=== PATIENT | male | born 1995 | race Caucasian/White ===

== ENCOUNTER 2019-11-29 14:59 | Emergency (ER) | payer MEDICAID ==
--- NOTE | 2019-11-29 15:03 | EDM.PDOC ---
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 He did take 400 mg of ibuprofen shortly after the above injury and placed a dressing, however no other treatment prior to arrival, including irrigation, Neosporin, etc.. The patient was working with an excavator and chain when his fingers accidentally 79 overgot caught in the chain. He has not injured these fingers in the past, however he is left-handed. No recent history of abdominal pain, heartburn, nausea, diarrhea, melena, gross hematochezia, or any food intolerance, including fatty foods, etc.. The patient also denies any recent fever, cough, wheezing, dyspnea, etc... No history of paresthesias, neurological deficits, or other complaints or injuries. Onset: Today, Sudden Onset Date: 11/29/19 Onset Time: 13:00 Duration: Constant, Resolved Prior to Arrival Location: Reports: Upper Extremity, Left. Denies: Head, Face, Neck, Chest, Abdomen, Back, Pelvis, Upper Extremity, Right, Lower Extremity, Left, Radiates to Quality: Reports: Same as Previous Episode, Sharp, Throbbing Severity: Moderate Improves with: Reports: None Worsens with: Reports: None Context: Reports: Trauma (As above) Associated Symptoms: Denies: Confusion, Chest Pain, Cough, Diaphoresis, Fever/Chills, Headaches, Loss of Appetite, Malaise, Nausea/Vomiting, Rash, Shortness of Breath, Syncope, Weakness Treatments AIR POLLUTION ANALYST: Reports: Dressing(s), NSAIDS Left Hand Pain Score (Numeric/FACES): 8 - Related Data Allergies Allergy/AdvReac Type Severity Reaction Status Date / Time No Known Allergies Allergy Verified 11/29/19 15:01 Home Meds: Home Meds Amoxicillin/Potassium Clav [Augmentin 875-125 Tablet] 1 each PO BIDMEALS #20 tablet 11/29/19 [Rx] Past Medical History Musculoskeletal History: Reports: Fracture, Other (See Below) Other Musculoskeletal History: Fifth right metacarpal secondary to a boxer's fracture in 2011 with no surgery required. Psychiatric History: Reports: ADD, ADHD, Addiction, Anxiety, Depression, Suicidal Ideation, Other (See Below). Denies: Psych Hospitalization(s), Suicide Attempt Other Psychiatric History: Illicit drug use as above. Social & Family History - Tobacco Use Smoking Status *Q: Current Every Day Smoker Tobacco Use Within Last Twelve Months: Cigarettes Years of Tobacco use: 8 Packs/Tins Daily: 1 Packs/Tins Daily Comment: Patient started smoking at age 16. - Alcohol Use Alcohol Use History: Yes Days Per Week of Alcohol Use: 2 Number of Drinks Per Day: 4 Total Drinks Per Week: 8 Total Drinks Per Week Comment: Usually beer. Patient would not answer DWI or treatment question. Alcohol Use in Last Twelve Months: Yes - Recreational Drug Use Recreational Drug Use: Yes Drug Use in Last 12 Months: Yes Recreational Drug Type: Reports: Amphetamines (Speed) (Started age 19 including IV use with patient arrested in early 2023 possession with 6-month imprisonment with last use since that time), Marijuana/Hashish (Since age 18? Daily.), Methamphetamine (As above). Denies: Cocaine, Heroin, Inhalants (Glues, Solvents, Aerosols), LSD (Acid), Morphine, Oxycodone Recreational Drug Route: Reports: Intravenous - Living Situation & Occupation Living situation: Reports: Single (1 child from a previous relationship. Never ), Other (Roommate) Occupation: Employed (Patent Legal Assistant) Review of Systems - Review of Systems Review Of Systems: Comprehensive ROS is negative, except as noted in HPI. ED EXAM, GENERAL - Physical Exam Exam: See Below Exam Limited By: No Limitations General Appearance: Alert, WD/WN, No Apparent Distress Head: Atraumatic, Normocephalic. No: Facial Swelling, Facial Tenderness, Sinus Tenderness Neck: Normal Inspection, Supple, Non-Tender, Full Range of Motion. No: Lymphadenopathy (L), Lymphadenopathy (R), Thyromegaly Respiratory/Chest: No Respiratory Distress, Lungs Clear, Normal Breath Sounds, No Accessory Muscle Use, Chest Non-Tender. No: Pleural Rub, Retractions Cardiovascular: Normal Peripheral Pulses, Regular Rate, Rhythm, No Edema, No Gallop, No JVD, No Murmur, No Rub. No: Gallop/S3, Gallop/S4, Friction Rub Peripheral Pulses: 2+: Radial (L), Radial (R) GI/Abdominal: Normal Bowel Sounds, Soft, Non-Tender, No Organomegaly, No Distention, No Abnormal Bruit, No Mass, Pelvis Stable. No: Guarding (Male) Exam: Deferred Rectal (Males) Exam: Deferred Back Exam: Normal Inspection, Full Range of Motion. No: CVA Tenderness (L), CVA Tenderness (R), Muscle Spasm Extremities: Normal Range of Motion, Non-Tender (Moderate palpation pain over laceration sites.), No Pedal Edema, Normal Capillary Refill, Other (2.5 cm denudement injury of digit #4 of the left hand including nail involvement. No bone prominence. 2 cm in diameter blister and mild abrasion over the middle phalanx in the palmar region of digit #3 of the left hand with no foreign body, requiring repair, deformity, etc.). No: Joselito's Sign Neurological: Alert, Oriented, CN II-XII Intact, Normal Cognition, Normal Gait, No Motor/Sensory Deficits Psychiatric: Normal Affect, Normal Mood Skin Exam: Wound/Incision (As above). No: Diaphoretic Lymphatic: No Adenopathy ED TRAUMA EXTREMITY PROCEDURES - Laceration/Wound Repair Left Distal Digit - 5th (Baby) Lac/Wound Length In cm: 2.5 Appearance: Muscle, Stellate, Irregular, Heavily Contaminated, Other (Denudement injury in the tuft area) Distal NVT: Neuro & Vascular Intact, No Tendon Injury Anesthetic Type: Local Local Anesthesia - Lidocaine (Xylocaine): 1% Plain Local Anesthetic Volume: 5cc Skin Prep: Providone-Iodine (Betadine), Sterile Drape, Other (Thorough surgical brush cleansing) Saline Irrigation (cc's): 0 Exploration/Debridement/Repair: Wound Explored, In a Bloodless Field, Explored to Base, Moderate Debridement, No Foreign Material Found, Wound Margins Revised, Multiple Flaps Aligned Closed With: Sutures Suture Size: 4-0 # of Sutures: 6 Suture Type: Nylon, Interrupted, Simple Drain Placement: No Sterile Dressing Applied: Nurse (Neosporin and tube gauze dressing) Tetanus Status Addressed: Yes Complications: No Progress/Comments: Note that fingernail had to be removed by means of curved hemostats. Course - Vital Signs Last Recorded V/S: Last Vital Signs Temp 36.9 C 11/29/19 15:03 Pulse 83 11/29/19 15:03 Resp 18 11/29/19 15:03 BP 128/72 11/29/19 15:03 Pulse Ox 100 11/29/19 15:03 Vital Signs - 24 hr 11/29/19 15:03 Temperature [ 36.9 C Temporal] Pulse, 83 Peripheral [ Right Pulse Oximetry] Respiratory 18 Rate Blood Pressure 128/72 [Right Upper Arm] O2 Sat by Pulse 100 Oximetry - Orders/Labs/Meds Orders: Active Orders 24 hr Category Date Time Status Vaccines to be Administered [RC] PER UNIT ROUTINE Care 11/29/19 15:17 Active Hand Comp Min 3V Lt [CR] Stat Exams 11/29/19 15:04 Taken Durable Medical Equipment for Discharge [DME for Oth 11/29/19 15:17 Ordered Discharge] [COMM] Routine Obtain Past Medical Record [OM.PC] Routine Oth 11/29/19 15:04 Active Labs: None Meds: Medications Discontinued Medications Generic Name Dose Route Start Last Admin Trade Name Freq PRN Reason Stop Dose Admin Diphtheria/Tetanus/Acell Pertussis 0.5 ml 11/29/19 15:17 11/29/19 15:29 Adacel IM 11/29/19 15:18 0.5 ml .ONCE ONE Administration Lidocaine HCl 5 ml 11/29/19 15:16 11/29/19 15:21 Xylocaine-Mpf 1% INJECT 11/29/19 15:17 5 ml ONETIME ONE Administration Lidocaine HCl 5 ml 11/29/19 15:23 Xylocaine-Mpf 1% INJECT 11/29/19 15:24 ONETIME ONE Neomycin/Polymyxin/Bacitracin 1 each 11/29/19 15:17 11/29/19 15:22 Triple Antibiotic Oint TOP 11/29/19 15:18 1 each ONETIME ONE Administration - Radiology Interpretation Free Text/Narrative:: X-rays of the left hand, 3 views, shows evidence of a moderately displaced comminuted tuft fracture of digit #4 with no joint involvement, foreign body, etc. Dislocation, etc., Soft tissue injury noted. No evidence of fracture and disease #3 of the left hand Departure - Departure Time of Disposition: 16:17 (Those exams are working on stress test from this morning's note) Disposition: Home, Self-Care 01 Condition: Good Clinical Impression: Open fracture of tuft of distal phalanx of finger, Tobacco abuse counseling, Mixed anxiety depressive disorder, Laceration, Illicit drug use, continuous, Abrasion - Discharge Information *PRESCRIPTION DRUG MONITORING PROGRAM REVIEWED*: Not Applicable *COPY OF PRESCRIPTION DRUG MONITORING REPORT IN PATIENT MELVIN: Not Applicable Prescriptions: Amoxicillin/Potassium Clav [Augmentin 875-125 Tablet] 1 each PO BIDMEALS #20 tablet Instructions: Steps to Quit Smoking, [id number], Health Risks of Smoking, Finger Fracture, Adult, [id number], Laceration Care, Adult, [id number], Sutures, Thorndike, or Adhesive Wound Closure, [id number] Referrals: Viji Moore PA [Primary Care Provider] - Forms: ED Department Discharge Additional Instructions: 1. Follow up with your regular provider in 10-14 days for suture removal as directed. Note x-rays of digit #4 of the left hand should be repeated at follow-up. Bring these discharge instructions with you to that visit. 2. Tylenol 650 mg by mouth every 4 hours and/or OTC ibuprofen 2-3 tabs by mouth every 6 hours with food as directed./needed. You may stagger these medications for 48-72 hours only, which essentially means that you are receiving a pain medication about every 2 hours. 3. Antibacterial soap wash/soak with subsequent antibacterial dressing such as Neosporin, etc. as directed 2 times per day until the wound or laceration site completely heals. Keep the area clean and dry with activity restrictions as discussed. Never use hydrogen peroxide for wound care. 4. Wear finger splint at all times after today's dressing change 5. Stop all tobacco use PAULINA as directed/per provided information and consider contacting Quit LIne, etc.. 6. Stop all marijuana and illicit drug use PAULINA as discussed. 7. Immediately after this visit verify that your cellular telephone's voicemail has been activated and is empty. Also verify that your home telephone's answering machine is operating properly and has space to receive messages. Note that it is sometimes necessary for us to be able to contact you at a later date to discuss your medical care. 8. Please remember that we are ALWAYS here for you and want to answer any questions you may have. Feel free to call the hospital any time and we call you back PAULINA. Sepsis Event Note (ED) - Focused Exam Vital Signs: Vital Signs Temp Pulse Resp BP Pulse Ox 11/29/19 15:03 36.9 C 83 18 128/72 100 - Problem List & Annotations (1) Laceration SNOMED Code(s): 205975726 Code(s): MWY0606 - Status: Acute Priority: High Onset Date: 11/29/19 Annotation/Comment:: Overall good results with a laceration repair considering denudement injury. Tube gauze Neosporin dressing placed by the nurse. TDAP was given. Augmentin therapy is to be initiated later this afternoon secondary to highly contaminated wound, open fracture, etc. Diarrhea precautions were given for his Augmentin use. Wound care, activity restrictions, etc. were discussed. He does not need a work excuse by his history. Note that fingernail was removed without complications. The wound will need to be healed by secondary intention. (2) Open fracture of tuft of distal phalanx of finger SNOMED Code(s): 106020554 Code(s): S62.639B - DISP FX OF DISTAL PHALANX OF UNSP FINGER, INIT FOR OPN FX Status: Acute Priority: High Onset Date: 11/29/19 Annotation/Comment:: Open tuft fracture as above with laceration repair and initiation of Augmentin. Close follow-up by his regular provider. 3-hole padded aluminum finger splint was provided, which will be initiated tomorrow as above. (3) Abrasion SNOMED Code(s): 731933651 Code(s): T14.8XXA - OTHER INJURY OF UNSPECIFIED BODY REGION, INITIAL ENCOUNTER Status: Acute Priority: Medium Onset Date: 11/29/19 Annotation/Comment:: Minor abrasion with moderate blister over the palmar surface of digit #3 of the left hand. No repair required. Wound care as per discharge instructions. (4) Illicit drug use, continuous SNOMED Code(s): 719429363 Code(s): F19.90 - OTHER PSYCHOACTIVE SUBSTANCE USE, UNSPECIFIED, UNCOMPLICATED Status: Chronic Priority: Medium Annotation/Comment:: Note history of IV methamphetamine use in the past as above. Patient continues to use marijuana, including today. Discontinuation of illicit drugs PAULINA strongly encouraged. (5) Mixed anxiety depressive disorder SNOMED Code(s): 684268248 Code(s): F41.8 - OTHER SPECIFIED ANXIETY DISORDERS Status: Chronic Priority: Medium Annotation/Comment:: Stable by patient history. No current medical therapy. Note previous history of ADHD, suicidal ideation, current illicit drug use, etc. as above. Continue to observe closely by his regular provider. (6) Tobacco abuse counseling SNOMED Code(s): 604330122, 434195531, 072486775 Code(s): Z71.6 - TOBACCO ABUSE COUNSELING Status: Chronic Priority: Medium Annotation/Comment:: Tobacco cessation strongly encouraged with information provided at discharge. - Problem List Review Problem List Initiated/Reviewed/Updated: Yes - My Orders Last 24 Hours: My Active Orders 11/29/19 15:04 Hand Comp Min 3V Lt [CR] Stat Obtain Past Medical Record [OM.PC] Routine 11/29/19 15:17 Vaccines to be Administered [RC] PER UNIT ROUTINE Durable Medical Equipment for Discharge [DME for Discharge] [COMM] Routine - Assessment/Plan Last 24 Hours: My Active Orders 11/29/19 15:04 Hand Comp Min 3V Lt [CR] Stat Obtain Past Medical Record [OM.PC] Routine 11/29/19 15:17 Vaccines to be Administered [RC] PER UNIT ROUTINE Durable Medical Equipment for Discharge [DME for Discharge] [COMM] Routine Assessment:: As above Plan: As above. Extensive precautions were given to the patient and his mother, who are in agreement with the treatment plan. See Patient Instructions for further treatment and plan.
[2019-11-29 15:06] VITALS: BP 128/72; PULSE 83
[2019-11-29] MEDS: Bacitracin/Neomycin/Polymyxin B Oint 0.9 GM U/D Packet TOP ONE (15:22)
[2019-11-29] MEDS: Diphtheria,Pertussis(Acell),Tetanus Vaccine 0.5 ML SDV IM ONE (15:29)
== END 2019-11-29 16:17 | disposition home or self-care (01) ==
LOC: LL.ED 14:59
DX: S62.635B Displaced fracture of distal phalanx of left ring finger, initial encounter for open fracture (principal); S61.217A Laceration without foreign body of left little finger without damage to nail, initial encounter; S60.413A Abrasion of left middle finger, initial encounter; F41.8 Other specified anxiety disorders; F19.10 Other psychoactive substance abuse, uncomplicated; F17.210 Nicotine dependence, cigarettes, uncomplicated; Z71.6 Tobacco abuse counseling; Z23 Encounter for immunization; W23.0XXA Caught, crushed, jammed, or pinched between moving objects, initial encounter; Y92.79 Other farm location as the place of occurrence of the external cause
CPT/HCPCS: 12041; 73130; 90471; 90715; 99283; J2001

== ENCOUNTER 2023-02-27 22:17 | Emergency (ER) | payer MEDICAID ==
[2023-02-27] MEDS ORDERED: Midazolam 1 MG/ML 2 ML SDV IVPUSH ONE (22:24)
[2023-02-27] MEDS ORDERED: Midazolam 1 MG/ML 2 ML SDV ONE (22:24)
[2023-02-27] MEDS ORDERED: Tranexamic Acid 1,000 MG/10 ML Vial TOP ONE (22:27)
[2023-02-27] MEDS ORDERED: Tranexamic Acid 1,000 MG/10 ML Vial ONE (22:27)
[2023-02-27] MEDS ORDERED: Lidocaine 2% with EPINEPHrine 1:100,000 20 ML MDV ONE ×2 (22:33→22:37)
[2023-02-27] MEDS ORDERED: Lidocaine 2% with EPINEPHrine 1:100,000 20 ML MDV INJECT ONE (22:33)
[2023-02-27] MEDS ORDERED: Haloperidol Lactate 5 MG/ML SDV ONE (22:44)
[2023-02-27] MEDS ORDERED: diphenhydrAMINE 50 MG/ML SDV IVPUSH ONE (22:44)
[2023-02-27] MEDS ORDERED: Haloperidol Lactate 5 MG/ML SDV IVPUSH ONE (22:44)
[2023-02-27] MEDS ORDERED: diphenhydrAMINE 50 MG/ML SDV ONE (22:44)
[2023-02-27] MEDS ORDERED: Sodium Chloride 0.9% 1,000 ML IV ONE ×2 (23:00→23:30)
[2023-02-27] MEDS ORDERED: Bacitracin/Neomycin/Polymyxin B Oint 0.9 GM U/D Packet TOP ONE (23:01)
[2023-02-27] MEDS ORDERED: Diphtheria,Pertussis(Acell),Tetanus Vaccine 0.5 ML Syringe ONE (23:01)
[2023-02-27] MEDS ORDERED: Bacitracin/Neomycin/Polymyxin B Oint 0.9 GM U/D Packet ONE ×2 (23:01→23:02)
[2023-02-27] MEDS ORDERED: ceFAZolin 1 GM Vial ONE (23:05)
[2023-02-27] MEDS ORDERED: ceFAZolin 1 GM Vial IVPUSH ONE (23:05)
[2023-02-27 23:26] LABS: BASOPHILS ABSOLUTE AUTO 0.02 K/uL (0.00-0.20); BASOPHILS PERCENT AUTO 0.3 % (0.0-2.0); EOSINOPHILS ABSOLUTE AUTO 0.03 K/uL (0.00-0.50); EOSINOPHILS PERCENT AUTO 0.4 % (0.0-5.0); HEMATOCRIT 41.1 % (39.0-49.0); HEMOGLOBIN 13.8 g/dL (13.1-16.8); LYMPHOCYTES ABSOLUTE AUTO 1.92 K/uL (0.50-3.50); LYMPHOCYTES PERCENT AUTO 25.1 % (10.0-50.0); MEAN CORPUSCULAR HEMOGLOBIN 32.1 pg (28.2-33.3); MEAN CORPUSCULAR HGB CONC 33.6 g/dL (31.7-36.0); MEAN CORPUSCULAR VOLUME 95.6 fL (84.0-98.0); MONOCYTES PERCENT AUTO 3.9 % (2.0-14.0); NEUTROPHILS ABSOLUTE AUTO 5.37 K/uL (1.40-7.00); NEUTROPHILS PERCENT AUTO 70.3 % (45.0-80.0); PLATELET COUNT,PLT 233 K/uL (150-350); RED CELL DISTRIBUTION WIDTH 12.5 % (11.2-14.1); WHITE BLOOD CELL COUNT,WBC 7.6 K/uL (4.0-10.2)
[2023-02-27 23:43] LABS: ALANINE AMINOTRANSFERASE,ALT 19 U/L (12-78); ALBUMIN 3.5 g/dL (3.4-5.0); ALKALINE PHOSPHATASE 64 IU/L (46-116); ASPARTATE AMNIOTRANSFERASE,AST 13 U/L (15-37); BILIRUBIN TOTAL 0.3 mg/dL (0.2-1.0); BLOOD UREA NITROGEN,BUN 18 mg/dL (7-18); CALCIUM 7.8 mg/dL (8.5-10.1); CARBON DIOXIDE,CO2 23.9 mmol/L (21.0-32.0); CHLORIDE,CL 105 mmol/L (98-107); CHOLESTEROL HDL 66 mg/dL (40-60); CHOLESTEROL LDL CALCULATED 58 mg/dL (0-100); CHOLESTEROL TOTAL 135 mg/dL (100-200); CREATININE 1.08 mg/dL (0.51-1.17); ETHANOL BLOOD MEDICAL 0.167 g/dL (0.000-0.080); GLUCOSE RANDOM 89 mg/dL (70-99); LIPASE 18 U/L (16-77); MAGNESIUM 1.9 mg/dL (1.8-2.4); POTASSIUM,K 3.4 mmol/L (3.5-5.1); PROTEIN TOTAL,TP 6.6 g/dL (6.4-8.2); SODIUM,NA 143 mmol/L (136-145); TRIGLYCERIDES 53 mg/dL (30-150); TSH ULTRASENSITIVE 1.061 mIU/mL (0.358-3.740)
[2023-02-27 23:45] LABS: ACETAMINOPHEN < 0.0 ug/mL (10.0-30.0); ANION GAP 17.5 meq/L (7-15); ESTIMATED GFR 98 mL/min (>=60)
[2023-02-28 01:52] VITALS: BP 106/68
[2023-02-28 04:48] VITALS: PULSE 82
[2023-02-28] MEDS ORDERED: Cephalexin 500 MG Cap ONE (09:03)
[2023-02-28] MEDS ORDERED: Cephalexin 500 MG Cap PO ONE (09:03)
== END 2023-02-28 10:10 | disposition home or self-care (01) ==
LOC: LL.ED 22:17
DX: S41.112A Laceration without foreign body of left upper arm, initial encounter (principal); R45.1 Restlessness and agitation; F10.10 Alcohol abuse, uncomplicated; R45.6 Violent behavior; Z23 Encounter for immunization; Z20.822 Contact with and (suspected) exposure to COVID-19; W27.2XXA Contact with scissors, initial encounter; Y92.009 Unspecified place in unspecified non-institutional (private) residence as the place of occurrence of the external cause
CPT/HCPCS: 12002; 36415; 80053; 80061; 80143; 80179; 80307; 81003; 83690; 83735; 84443; 85025; 90471; 90715; 96374; 96375; 99285-25; A9270-GY; J0690; J1200; J1630; J3490; J7030; U0002

== ENCOUNTER 2023-03-01 23:39 | Emergency (ER) | payer MEDICAID ==
[2023-03-01] MEDS: EPINEPHrine 1 MG/ML SDV SUBCUT ONE (23:48)
[2023-03-01] MEDS: diphenhydrAMINE 50 MG/ML SDV IM ONE (23:49)
[2023-03-01] MEDS: Famotidine 20 MG Tab PO ONE (23:53)
[2023-03-01] MEDS: predniSONE 20 MG Tab PO ONE (23:54)
[2023-03-02 00:32] VITALS: BP 136/76; PULSE 99
== END 2023-03-02 00:45 | disposition home or self-care (01) ==
LOC: LL.ED 23:39
DX: K14.8 Other diseases of tongue (principal); T36.8X5A Adverse effect of other systemic antibiotics, initial encounter; F17.210 Nicotine dependence, cigarettes, uncomplicated; Z88.1 Allergy status to other antibiotic agents
CPT/HCPCS: 96372; 99283; A9270-GY; J0171; J1200; J7512